=== PATIENT | female | born 1980 | race Caucasian/White ===

== ENCOUNTER 2019-08-01 11:17 | Outpatient (CLI) | payer BC, SELFPAY ==
--- NOTE | ~2019-08-01 | MMUS_ITS ---
EXAMINATION: MM diagnostic hamida BI w maico, US breast BI complete HISTORY: Bilateral breast pain, yellow pus-like discharge, left greater than right TECHNIQUE: ML, MLO and cc full field and additional spot 3-D tomosynthesis images of both breasts wer e performed and synthetic 2-D images were generated. CAD analysis was submitted and interpreted. High resolution bilateral complete breast ultrasound was performed. COMPARISON: None BREAST PARENCHYMAL COMPOSITION: There are scattered areas of fibroglandular density. FINDINGS: MAMMOGRAPHIC FINDINGS: There is a low-density circumscribed reniform approximately 7 mm opacity in the superior outer left b reast, likely a benign intramammary lymph node. Otherwise no suspicious reproducible mass, architectural distortion, malignant calcification, skin t hickening or retraction of either breast is detected. ULTRASOUND: No suspicious mass or shadowing is detected. IMPRESSION: 1. No mammographic evidence of malignancy 2. Annual mammographic screening follow-up is recommended BI-RADS Category 2: Benign finding(s). Reviewed, dictated and finalized at location A. IMPRESSION: 1. No mammographic evidence of malignancy 2. Annual mammographic screening follow-up is recommended BI-RADS Category 2: Benign finding(s).
== END 2019-08-01 11:18 | disposition home or self-care (01) ==
PROVIDERS: PCP Obstetrics & Gynecology; Visit Provider Obstetrics & Gynecology
DX: N64.4 Mastodynia (principal); R92.8 Other abnormal and inconclusive findings on diagnostic imaging of breast
CPT/HCPCS: 76641; 77062; 77066; G0279

== ENCOUNTER 2022-06-11 16:18 | Emergency (ER) | payer OTHER, BC, SELFPAY ==
--- NOTE | ~2022-06-11 | XR_ITS ---
EXAM: XR wrist RT min 3V DATE: 06/11/2022 16:41 HISTORY: right wrist pain after lifing step stool . COMPARISON: 08/06/2008. FINDINGS: Normal mineralization. No fracture or dislocation. No lytic or blastic lesion. Joint space s are maintained. No erosion or periosteal change. Soft tissues within normal limits. IMPRESSION: No acute osseous finding in the right wrist. Reviewed, dictated and finalized at location K.
--- NOTE | 2022-06-11 16:20 | ED.UPPEXIN ---
HPI - Extremity Injury (Upper) General Chief Complaint: Extremity Injury, Upper Stated Complaint: rt wrist injury,WC Time Seen by Provider: 06/11/22 16:20 Source: patient Mode of arrival: ambulatory Limitations: no limitations History of Present Illness HPI narrative: Ms. Anne is a 41-year-old female patient presenting to clinic today with complaints of right wrist pain. She reports she was at work and she was reaching back for a ladder and grabbed the ladder and felt a pop in her wrist with instant pain. She reports pain to the volar aspect of wrist and to the ulnar side with pain radiating up her arm. Related Data Home Medications Medication Instructions Recorded Confirmed No Home Medications 06/11/22 06/11/22 Allergies Allergy/AdvReac Type Severity Reaction Status Date / Time No Known Allergies Allergy Mild Unverified 06/11/22 16:25 Review of Systems Review of Systems: Pertinent positives per HPI. Patient denies any fever, chills, rash, headache, visual changes, dizziness, cough, runny nose, sore throat, shortness of breath, chest pain, palpitations, nausea, vomiting, diarrhea, constipation, abdominal pain, or any urinary issues. [facility] Family History Family History Mother Hypertension Grandparent Carcinoma of colon Family history of malignant melanoma Family history of lung cancer Family history of coronary artery disease Diabetes mellitus Social History Social History Smoking status: Current every day smoker Alcohol intake: current Comments At the time of my signature, I reviewed and agree with the nursing past medical, surgical, social, and family history. There is no relevant family history pertinent to the patient complaint. Exam Narrative: General: Well-developed, well nourished, in no apparent distress Head: Normocephalic, atraumatic. Cardio: Regular rate and rhythm, s1 and s2 normal, no murmur appreciated. Resp: Clear to auscultation bilaterally, no rhonchi, rales, wheezing or rubs. Musculoskeletal: No deformity, tender to palpation over the ulnar volar aspect of the wrist, grossly normal range of motion with mild discomfort with complete hyperextension and flexion, hand grasps strong bilaterally, muscle strength strong and equal, peripheral pulse strong, no edema, no cyanosis, normal gait and station Course Course Emergency Course: Portions of this record may have been created with voice recognition software. Level of Care: Express Care Visit Vital Signs Vital signs: Vital Signs Temperature 36.8 C 06/11/22 16:30 Pulse Rate 94 06/11/22 16:30 Respiratory Rate 16 06/11/22 16:30 Blood Pressure 124/88 06/11/22 16:30 Pulse Oximetry 98 06/11/22 16:30 Temperature 36.8 C 06/11/22 16:30 Pulse Rate 94 06/11/22 16:30 Respiratory Rate 16 06/11/22 16:30 Blood Pressure 124/88 06/11/22 16:30 Pulse Oximetry 98 06/11/22 16:30 Vital signs reviewed MDM - Extremity Injury (Upper) MDM Narrative Medical decision making narrative: At the time of visit patient is resting comfortably on exam table. X-ray was performed of the right wrist and was negative for any sign of fracture or malalignment Differential Diagnosis Differential diagnosis: Likely sprain and strain of wrist, fracture of wrist and other (Wrist tendinitis, carpal tunnel syndrome) Imaging Data Radiologist's impression: [facility] [address] [place] [address] XRay Report Signed Patient: Lupis Anne : 1980 MR#: [id number] Age/Sex: 41 / F Acct:[id number] Loc: [facility]? ? ADM Date: 06/11/22Attending Dr: Ordering Physician: Branden Hair APRN Date of Service: 06/11/22 Procedure(s): XR wrist RT min 3V Accession Number(s): [id number] cc: Branden Hair
[2022-06-11 16:30] VITALS: BP 124/88; PULSE 94; RESP 16; TEMP 36.8; O2SAT 98
== END 2022-06-11 16:55 | disposition home or self-care (01) ==
PROVIDERS: Emergency Provider Nurse Practitioner Family
DX: S63.501A Unspecified sprain of right wrist, initial encounter (principal); X50.9XXA Other and unspecified overexertion or strenuous movements or postures, initial encounter; Y99.0 Civilian activity done for income or pay; F17.200 Nicotine dependence, unspecified, uncomplicated
CPT/HCPCS: 73110; 99213; G0463

== ENCOUNTER 2023-05-17 13:24 | Emergency (ER) | payer BC, SELFPAY ==
--- NOTE | ~2023-05-17 | CT_ITS ---
EXAMINATION: CT soft tissue neck chest w DATE: 05/17/2023 15:57 INDICATION: Cyst in the posterior neck. TECHNIQUE: Computed tomography (CT) of the neck and chest was performed with 75 mL Omnipaque-350 intr avenous contrast. Automated exposure control and iterative reconstruction technique were employed. e dose-length product was 2017.94 mGy-cm. COMPARISON: None FINDINGS: CT NECK: The orbits are normal. There are no pathologically enlarged lymph nodes. There is subcutaneo us fat stranding in the posterior neck, right worse than left. There is mild cervical spondylosis. CT CHEST: There is no pneumonia or pleural effusion. The heart size is normal. No pericardial effusio n. There are no pathologically enlarged lymph nodes. There is mild thoracic spondylosis. IMPRESSION: 1. Subcutaneous fat stranding in the posterior neck, right worse than left, likely inflammation. Reviewed, dictated and finalized at location E. METERS CALIBRATOR IMPRESSION: 1. Subcutaneous fat stranding in the posterior neck, right worse than left, lik brenda inflammation.
[2023-05-17 13:36] VITALS: BP 143/91; PULSE 91; RESP 16; TEMP 37.1; O2SAT 100
--- NOTE | 2023-05-17 15:03 | ED.SKABFB ---
HPI - Skin/Abscess/Foreign Bdy General Chief complaint: Skin/Abscess/Foreign Body <Branden Hair APRN - Last Filed: 05/17/23 15:13> Stated complaint: cyst <Branden Hair APRN - Last Filed: 05/17/23 15:13> Time Seen by Provider: 05/17/23 15:00 <Branden Hair APRN - Last Filed: 05/17/23 15:13> Focused HPI: Lupis is a 42-year-old female patient presenting to the emergency room for complaints of a possible cyst to the right lateral cervical spine. She reports that this is causing radiation of pain into the back of her neck/head and as well as down her right shoulder and to her arm. She was seen by her PCP for this and they ordered a Bactrim as they were concerned that the cyst may be infected. No obvious redness or erythema noted. Patient denies any fever or chills. General: Well-developed, well nourished, in no apparent distress Head: Normocephalic, atraumatic. Cardio: Regular rate and rhythm, s1 and s2 normal, no murmur appreciated. Resp: Clear to auscultation bilaterally, no rhonchi, rales, wheezing or rubs. Integumentary: Gramling, warm, and dry, 4 x 2 cm mass to the right lateral lower cervical spine. No erythema or redness noted, area is firm to palpation Patient screened in triage and initial orders placed. Additional care and disposition to be based upon diagnostic testing and treatment. <Branden Hair APRN - Last Filed: 05/17/23 15:13> Source: patient <Branden Hair APRN - Last Filed: 05/17/23 15:13> Mode of arrival: ambulatory <Branden Hair APRN - Last Filed: 05/17/23 15:13> Limitations: no limitations <Branden Hair APRN - Last Filed: 05/17/23 15:13> History of Present Illness HPI narrative: 42 Year old female presents to emergency department for a an inflamed area to the right posterior neck/shoulder area. Patient states this appeared 6 days ago and started at is pea-sized. It has progressively ground. States she contacted her PCP who prescribed her Bactrim 2 days ago. States she has been taken it as prescribed and notes that it has improved, however present to the emergency department in hopes to have it excised. She reports that is tender that she has been taking Tylenol ibuprofen without improvement. Denies fever, nausea or vomiting. <Mayelin Lopez PA-C - Last Filed: 05/17/23 17:40> Related Data Allergies/Adverse reactions: Allergies Allergy/AdvReac Type Severity Reaction Status Date / Time hydrocodone AdvReac Rash Verified 05/17/23 15:04 morphine AdvReac Rash Verified 05/17/23 15:04 <Branden Hair APRN - Last Filed: 05/17/23 15:13> Review of Systems Review of Systems: CONSTITUTIONAL: Denies fever, chills, or sweats. EYES: Denies visual changes, redness, or discharge. ENT: Denies rhinorrhea, congestion, sore throat, or otalgia. CARDIOVASCULAR: Denies chest pain, palpitations, or edema. RESPIRATORY: Denies cough or dyspnea. GASTROINTESTINAL: Denies abdominal pain, nausea, vomiting, or diarrhea. GENITOURINARY: Denies dysuria or hematuria. SKIN: See HPI MUSCULOSKELETAL: Denies back pain, joint pain, or myalgia. NEUROLOGIC: Denies headache, numbness, or weakness. PSYCHIATRIC: Denies anxiety or depression. <Mayelin Lopez PA-C - Last Filed: 05/17/23 17:40> [facility] Family History Family History: Family History Mother Hypertension Grandparent Carcinoma of colon Family history of malignant melanoma Family history of lung cancer Family history of coronary artery disease Diabetes mellitus <Branden Hair APRN - Last Filed: 05/17/23 15:13> Social History Social History: Social History Smoking status: Current every day smoker Alcohol intake: current <Branden Hair APRN - Last Filed: 05/17/23 15:13> Comments At the time of my signature, I rev
[2023-05-17 15:23] LABS: Basophils Absolute Auto 0.1 K/mm3 (0.0-0.1); Basophils Percent Auto 0.5 % (0.2-1.2); Eosinophils Absolute Auto 0.3 K/mm3 (0-0.3); Eosinophils Percent Auto 2.2 % (0-4.4); Hematocrit 42.6 % (37.0-47.0); Immature Granulocyte Absolute 0.06 K/mm3 (0.00-0.031); Immature Granulocyte Percent A 0.5 % (0-0.5); Lymphocytes Absolute Auto 3.74 K/mm3 (0.9-3.2); Lymphocytes Percent Auto 31.2 % (18.3-44.2); Mean Corpuscular HGB Conc 32.9 g/dl (32-36); Mean Corpuscular Hemoglobin 28.7 pg (26-34); Mean Corpuscular Volume 87.5 fl (80-100); Mean Platelet Volume 8.7 fl (7.4-10.4); Monocytes Absolute Auto 0.6 K/mm3 (0.1-0.6); Monocytes Percent Auto 4.8 % (2.6-8.5); Neutrophils Absolute Auto 7.3 K/mm3 (1.3-6.7); Neutrophils Percent Auto 60.8 % (45.5-73.1); Platelet Count Result 366 k/mm3 (150-375); Red Blood Count 4.87 M/mm3 (4.2-5.4); Red Cell Distribution Width 13.1 % (11.5-14.5)
[2023-05-17 15:35] LABS: Alanine Aminotransferase 33 U/L (6-35); Albumin Level 4.4 g/dL (3.5-5.1); Alkaline Phosphatase 103 U/L (38-126); Anion Gap 6 mmol/L (8-16); Aspartate Amino Transferase 29 U/L (14-36); Bilirubin,Total 0.4 mg/dL (0.2-1.3); Blood Urea Nitrogen 9 mg/dL (7-17); Calcium 9.3 mg/dL (8.4-10.2); Carbon Dioxide 23 mmol/L (22-30); Chloride 106 mmol/L (98-107); Estimated Glomerular Filt Rate > 60; Glucose 93 mg/dL (65-110); Sodium 135 mmol/L (137-145)
--- NOTE | 2023-05-17 17:25 | ED.SKABFB ---
HPI - Skin/Abscess/Foreign Bdy General Chief complaint: Skin/Abscess/Foreign Body Stated complaint: cyst Time Seen by Provider: 05/17/23 15:00 Source: patient Mode of arrival: ambulatory Limitations: no limitations History of Present Illness HPI narrative: 42 Year old female presents to emergency department for Related Data Home Medications Medication Instructions Recorded Confirmed No Home Medications 06/11/22 06/11/22 Allergies Allergy/AdvReac Type Severity Reaction Status Date / Time hydrocodone AdvReac Rash Verified 05/17/23 15:04 morphine AdvReac Rash Verified 05/17/23 15:04 [facility] Family History Family History Mother Hypertension Grandparent Carcinoma of colon Family history of malignant melanoma Family history of lung cancer Family history of coronary artery disease Diabetes mellitus Social History Social History Smoking status: Current every day smoker Alcohol intake: current Course Vital Signs Vital signs: Vital Signs Temperature 98.8 F 05/17/23 13:36 Pulse Rate 91 05/17/23 13:36 Respiratory Rate 16 05/17/23 13:36 Blood Pressure 143/91 H 05/17/23 13:36 Pulse Oximetry 100 05/17/23 13:36 Oxygen Delivery Room Air 05/17/23 13:36 Temperature 98.8 F 05/17/23 13:36 Pulse Rate 91 05/17/23 13:36 Respiratory Rate 16 05/17/23 13:36 Blood Pressure 143/91 H 05/17/23 13:36 Pulse Oximetry 100 05/17/23 13:36 Oxygen Delivery Room Air 05/17/23 13:36 MDM - Skin/Abscess/Foreign Bdy Lab Data 05/17/23 15:15 05/17/23 15:15 Labs: Lab Results 05/17/23 Range/Units 15:15 WBC 12.0 H (4.5-10.0) K/mm3 RBC 4.87 (4.2-5.4) M/mm3 Hgb 14.0 (12.0-15.0) g/dL Hct 42.6 (37.0-47.0) % MCV 87.5 (80-100) fl MCH 28.7 (26-34) pg MCHC 32.9 (32-36) g/dl RDW 13.1 (11.5-14.5) % Plt Count 366 (150-375) k/mm3 MPV 8.7 (7.4-10.4) fl Immature Gran % (Auto) 0.5 (0-0.5) % Neut % (Auto) 60.8 (45.5-73.1) % Lymph % (Auto) 31.2 (18.3-44.2) % [place] % (Auto) 4.8 (2.6-8.5) % Eos % (Auto) 2.2 (0-4.4) % Baso % (Auto) 0.5 (0.2-1.2) % Lymph # (Auto) 3.74 H (0.9-3.2) K/mm3 [place] # (Auto) 0.6 (0.1-0.6) K/mm3 Eos # (Auto) 0.3 (0-0.3) K/mm3 Baso # (Auto) 0.1 (0.0-0.1) K/mm3 Abs Immat Gran (auto) 0.06 H (0.00-0.031) K/mm3 Absolute Neuts (auto) 7.3 H (1.3-6.7) K/mm3 Absolute Nucleated RBC 0.0 (0.0-0.012) K/mm3 Nucleated RBC % 0.0 (0.0-0.2) % Sodium 135 L (137-145) mmol/L Potassium 4.0 (3.4-5.0) mmol/L Chloride 106 (98-107) mmol/L Carbon Dioxide 23 (22-30) mmol/L Anion Gap 6 L (8-16) mmol/L BUN 9 (7-17) mg/dL Creatinine 0.70 (0.7-1.0) mg/dL Estim Creat Clear Calc Not Reportable Estimated GFR > 60 (59 - ) Glucose 93 (65-110) mg/dL Calcium 9.3 (8.4-10.2) mg/dL Total Bilirubin 0.4 (0.2-1.3) mg/dL AST 29 (14-36) U/L ALT 33 (6-35) U/L Alkaline Phosphatase 103 (38-126) U/L Total Protein 8.0 (6.3-8.2) g/dL Albumin 4.4 (3.5-5.1) g/dL Discharge Plan Discharge Prescriptions: No Action No Home Medications Follow-up/Referrals: UNKNOWN,DOCTOR [Primary Care Provider] -
[2023-05-17] MEDS: HYDROcodone/acetaminophen (*CRX) 5-325 MG TABLET 1 TAB PO (18:12)
[2023-05-17] MEDS: CEPHALEXIN 500 MG CAPSULE PO (18:12)
[2023-05-17 18:17] VITALS: BP 138/80; PULSE 73; RESP 18; TEMP 36.9; O2SAT 98
== END 2023-05-17 18:20 | disposition home or self-care (01) ==
PROVIDERS: Nurse Practitioner Family; Emergency Provider Physician Assistant
DX: I88.9 Nonspecific lymphadenitis, unspecified (principal); F17.200 Nicotine dependence, unspecified, uncomplicated
CPT/HCPCS: 36415; 70491; 71260; 80053; 85025; 99284; A9270; Q9967